=== PATIENT | female | born 1960 | race Caucasian/White ===

== ENCOUNTER 2021-04-14 08:41 | Outpatient (REF) | payer OTHER, SELFPAY ==
[2021-04-14 11:30] LABS: Folate 7.7 ng/mL (> or = 4.0); Vitamin B12 304 pg/mL (200-900)
[2021-04-14 12:36] LABS: Anion Gap 14 (12-20); Blood Urea Nitrogen 24 mg/dL (9-16); Calcium 10.2 mg/dL (8.4-10.2); Carbon Dioxide 29 mmol/L (22-29); Chloride 104 mmol/L (96-108); Estimated Glomerular Filt Rate 53; Glucose Fasting 99 mg/dL (60-99); Potassium 4.6 mmol/L (3.3-5.1); Sodium 142 mmol/L (135-145)
[2021-04-15 09:37] LABS: Lyme Abs Screen <0.90 index
[2021-04-16 09:25] LABS: IgA 292 mg/dL (70-320); IgG 1078 mg/dL (600-1540); IgM 55 mg/dL (50-300)
== END 2021-04-14 08:42 | disposition home or self-care (01) ==
LOC: HO.LAB 08:41
PROVIDERS: PCP Internal Medicine; Visit Provider Psychiatry & Neurology Neurology
DX: G43.909 Migraine, unspecified, not intractable, without status migrainosus (principal)
CPT/HCPCS: 36415; 80048; 82607; 82746; 82784; 86334; 86617; 86618